=== PATIENT | male | born 1980 | race Caucasian/White ===

== ENCOUNTER 2017-03-16 08:28 | Emergency (ER) | payer MEDICAID ==
[~2017-03-16] VITALS: Ht 157.5 cm; Wt 78.0 kg
[2017-03-16 08:29] VITALS: Ht 157.5 cm; Wt 78.0 kg
[2017-03-16 09:26] LABS: ADD UMIC YES; UR ASCORBIC ACID NEGATIVE (NEGATIVE); UR BILIRUBIN (Dip) NEGATIVE (NEGATIVE); UR BLOOD (Dip) 1+ mg/dL (NEGATIVE); UR CLARITY CLEAR (CLEAR); UR COLOR YELLOW (YELLOW); UR GLUCOSE (Dip) NEGATIVE (NEGATIVE); UR KETONES (Dip) NEGATIVE (NEGATIVE); UR LEUKOCYTE ESTERASE (Dip) NEGATIVE Leu/ul (NEGATIVE); UR NITRITE (Dip) NEGATIVE (NEGATIVE); UR RBC 0 /HPF (0-5); UR SPECIFIC GRAVITY (Dip) 1.017 (1.003-1.030); UR TOTAL PROTEIN (Dip) NEGATIVE (NEGATIVE); UR UROBILINOGEN (Dip) NEGATIVE (NEGATIVE)
--- NOTE | 2017-03-16 09:57 | ERD ---
ER Documentation Chief Complaint Chief Complaint dysuria intermittent x 3 yeaRS HPI This is a 37-year-old male presents emergency department today complaining of frequent urination and burning with urination intermittently for the past 3 years. States that he went to his clinic a couple weeks ago and was given a prescription for azithromycin that he took for 3 days. States he has some lower abdominal pain. Denies being sexually active, penile discharge fevers or chills ROS All systems reviewed and are negative except as per history of present illness. Medications Home Meds Active Scripts Tamsulosin Hcl* (Flomax*) 0.4 Mg Cap.er.24h, 0.4 MG PO QPM, #30 CAP Prov:GUIDO FARLEY PA-C 03/16/17 PMhx/Soc Medical and Surgical Hx: pt denies Medical Hx, pt denies Surgical Hx Hx Alcohol Use: No Hx Substance Use: No Hx Tobacco Use: No Physical Exam Vitals Vital Signs Date Time Temp Pulse Resp B/P Pulse Ox O2 Delivery O2 Flow Rate FiO2 03/16/17 08:29 98.1 79 18 153/83 99 Physical Exam Const: NAD Head: Atraumatic Eyes: Normal Conjunctiva ENT: Normal External Ears, Nose and Mouth. Neck: Full range of motion..~ No meningismus. Resp: Clear to auscultation bilaterally Cardio: Regular rate and rhythm, no murmurs Abd: Soft, suprapubic tenderness non distended. Normal bowel sounds. No tenderness at McBurney's : Uncircumcised penis with no penis discharge. Testicles descended bilaterally. Nontender. Skin: No petechiae or rashes Back: No midline or flank tenderness Ext: No cyanosis, or edema Neur: Awake and alert Psych: Normal Mood and Affect Results 24 hrs Laboratory Tests Test 03/16/17 09:07 Urine Color YELLOW Urine Clarity CLEAR Urine pH 6.0 Urine Specific Bryant 1.017 Urine Ketones NEGATIVEmg/dL Urine Nitrite NEGATIVEmg/dL Urine Bilirubin NEGATIVEmg/dL Urine Urobilinogen NEGATIVEmg/dL Urine Leukocyte Esterase NEGATIVELeu/ul Urine Microscopic RBC 0/HPF Urine Microscopic WBC 0/HPF Urine Hemoglobin 1+mg/dL Urine Glucose NEGATIVEmg/dL Urine Total Protein NEGATIVEmg/dl DIAGNOSTIC IMAGING REPORT Patient: JUDITH REGAN : 1980 Age: 37 Sex: M MR #: [id number] DOS: 03/16/17 0933 Ordering MD: GUIDO FARLEY PA-C Location: [facility] Room/Bed: PROCEDURE: CT abdomen and pelvis without contrast. CLINICAL INDICATION: Abdominal pain. TECHNIQUE: CT scan of the abdomen and pelvis without contrast was performed on a multi-slice CT scanner . Sagittal and coronal reformatted images were obtained from the axial source images. One or more of the following dose reduction techniques were used: - Automated exposure control. - Adjustment of the mA and/or kV according to patient size. - Use of iterative reconstruction technique. DICOM images are available DLP 466.4 mGycm. CTDIvol 7.5 mGy COMPARISON: None FINDINGS: The lung bases are clear. There is limited evaluation of the solid viscera from the lack of IV contrast. The kidneys are symmetric bilaterally with no evidence of renal or ureteral calculi. There is no hydronephrosis or perinephric stranding. There is fatty infiltration of the liver with no gross focal lesion or biliary ductal dilatation. The gallbladder is unremarkable without inflammation. The spleen is unremarkable without mass. The adrenal glands are within normal limits without mass. The pancreas is unremarkable without focal lesion or surrounding inflammatory changes. There is no bowel obstruction or focal bowel inflammation. The appendix is unremarkable. There is no free air or free fluid. There are no enlarged lymph nodes. The aorta is unremarkable and there is no acute osseous abnormality. The prostate is grossly unremarkable. IMPRESSION: No evidence of renal or ureteral calculi or hydronephrosis. No evidence of bowel obstruction or inflammation. There is no appendicitis. Fatty liver. RPTAT: AA .Royce Lemon MD, MD Date Time Electronically viewed and signed by .Royce Lemon MD, MD on 03/16/2017 10:25 .J/ CC: GUIDO FARLEY PA-C Procedures/MDM This a 37-year-old male who presents emergency department today complaining of some lower abdominal pain and dysuria and frequent urination intermittently for the past 3 years. Patient is afebrile and otherwise well-appearing. His physical exam is essentially benign with the exception of some suprapubic tenderness. I discussed the patient with Dr. Conde and he recommended a CT abdomen pelvis noncontrast. I also obtain a UA UA is negative for infection. Urine was sent for gonorrhea and chlamydia CT abdomen pelvis noncontrast shows prostate is grossly unremarkable. There is no evidence of renal or ureteral calculi or hydronephrosis there is no evidence of bowel obstruction or inflammation. There is no appendicitis. There is fatty liver. Patient has dysuria of uncertain etiology. I have explained this to the patient and given that he has had the symptoms for quite some time I explained to him that he needs to see a urology specialist. Patient was given a list of referrals. Also given Flomax to take at night the recommendation of Dr. Conde. At this time the patient is stable for discharge and outpatient management. Patient should follow up with their PCP in the next 1-2 days. They may return to the emergency department sooner for any persistent or worsening of symptoms. Patient understood and agreed with the plan. Departure Diagnosis: Primary Impression: Dysuria Additional Impression: Abdominal pain Abdominal location: lower abdomen, unspecified Qualified Code: R10.30 - Lower abdominal pain Condition: GUIDO Read PA-C Mar 16, 2017 09:57
--- NOTE | 2017-03-16 10:25 | RADRPT ---
PROCEDURE: CT abdomen and pelvis without contrast. CLINICAL INDICATION: Abdominal pain. TECHNIQUE: CT scan of the abdomen and pelvis without contrast was performed on a multi-slice [facility] . Sagittal and coronal reformatted images were obtained from the axial source images. One or more of the following dose reduction techniques were used: - Automated exposure control. - Adjustment of the mA and/or kV according to patient size. - Use of iterative reconstruction technique. DICOM images are available DLP 466.4 mGycm. CTDIvol 7.5 mGy COMPARISON: None FINDINGS: The lung bases are clear. There is limited evaluation of the solid viscera from the lack of IV con trast. The kidneys are symmetric bilaterally with no evidence of renal or ureteral calculi. There is no hy dronephrosis or perinephric stranding. There is fatty infiltration of the liver with no gross focal lesion or biliary ductal dilatation. T he gallbladder is unremarkable without inflammation. The spleen is unremarkable without mass. The adrenal glands are within normal limits without mass. The pancreas is unremarkable without focal lesion or surrounding inflammatory changes. There is no bowel obstruction or focal bowel inflammation. The appendix is unremarkable. There is no free air or free fluid. There are no enlarged lymph nodes. The aorta is unremarkable and there is no acute osseous abnormality. The prostate is grossly unremarkable. IMPRESSION: No evidence of renal or ureteral calculi or hydronephrosis. No evidence of bowel obstruction or inflammation. There is no appendicitis. Fatty liver. RPTAT: AA .Royce Lemon MD, MD Date Time Electronically viewed and signed by .Royce Lemon MD, MD on 03/16/2017 10:25 .J/
[2017-03-16] MEDS ORDERED: TAMS-14 PO (10:36)
== END 2017-03-16 10:40 | disposition home or self-care (01) ==
LOC: FTE 08:28
DX: R30.0 Dysuria (principal); R10.30 Lower abdominal pain, unspecified
CPT/HCPCS: 74176; 81001; 87591; Z7502